=== PATIENT | male | born 1975 | race Caucasian/White ===

== ENCOUNTER 2017-12-08 20:55 | Emergency (ER) | payer BC, OTHER ==
[2017-12-08 21:03] VITALS: BP 123/88
--- NOTE | 2017-12-08 21:30 | EDM.PDOC ---
ED HPI GENERAL MEDICAL PROBLEM - General Chief Complaint: General Stated Complaint: post-op bleeding Time Seen by Provider: 12/08/17 21:00 Source of Information: Reports: Patient, RN History Limitations: Reports: No Limitations - History of Present Illness INITIAL COMMENTS - FREE TEXT/NARRATIVE: Patient is a 42-year-old gentleman who had a [facility]illect[facility] performed [facility] he was home when he started bleeding from the surgical site and came into the hospital at the time that I examined him patient was in no longer bleeding and his speech was clear Onset: Sudden Duration: Hour(s):, Improving Location: Reports: Face Quality: Reports: Other (No pain) Severity: Mild Improves with: Reports: Cold Therapy Worsens with: Reports: Eating Context: Reports: Other (Status post surgery) Associated Symptoms: Reports: No Other Symptoms Treatments 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 Gastrointestinal History: Reports: Other (See Below) Other Gastrointestinal History: Gastric bypass, 2004 Musculoskeletal History: Reports: Fracture Other Musculoskeletal History: R foot repair from crush injury in 2004 - Infectious Disease History Infectious Disease History: Reports: Chicken Pox - Past Surgical History GI Surgical History: Reports: Bariatric Procedure Social & Family History - Tobacco Use Smoking Status *Q: Former Smoker Years of Tobacco use: 20 Used Tobacco, but Quit: Yes Month/Year Tobacco Last Used: 02/2016 Second Hand Smoke Exposure: No - Alcohol Use Days Per Week of Alcohol Use: 7 Number of Drinks Per Day: 2 Total Drinks Per Week: 14 - Recreational Drug Use Recreational Drug Use: No ED ROS GENERAL - Review of Systems Review Of Systems: See Below Constitutional: Reports: No Symptoms HEENT: Reports: Throat Swelling, Other (Tonsillar bleed control at this time) Respiratory: Reports: No Symptoms Cardiovascular: Reports: No Symptoms Endocrine: Reports: No Symptoms GI/Abdominal: Reports: No Symptoms : Reports: No Symptoms Musculoskeletal: Reports: No Symptoms Skin: Reports: No Symptoms Neurological: Reports: No Symptoms Psychiatric: Reports: No Symptoms Hematologic/Lymphatic: Reports: No Symptoms Immunologic: Reports: No Symptoms ED EXAM, GENERAL - Physical Exam Exam: See Below Exam Limited By: Language Barrier (Difficult time speaking secondary to tonsillectomy) General Appearance: Alert, WD/WN, Mild Distress Ears: Normal External Exam, Normal Canal, Hearing Grossly Normal, Normal TMs Nose: Normal Inspection, Normal Mucosa, No Blood Throat/Mouth: Inflammation, Other (Tonsillar crypts appeared hyfrecated but no active bleeding seen at this time) Head: Atraumatic, Normocephalic Neck: Normal Inspection, Supple, Non-Tender, Full Range of Motion Respiratory/Chest: No Respiratory Distress, Lungs Clear, Normal Breath Sounds, No Accessory Muscle Use, Chest Non-Tender Cardiovascular: Normal Peripheral Pulses, Regular Rate, Rhythm, No Edema, No Gallop, No JVD, No Murmur, No Rub GI/Abdominal: Normal Bowel Sounds, Soft, Non-Tender, No Organomegaly, No Distention, No Abnormal Bruit, No Mass (Male) Exam: Deferred Rectal (Males) Exam: Deferred Back Exam: Normal Inspection, Full Range of Motion, NT Extremities: Normal Inspection, Normal Range of Motion, Non-Tender, Normal Capillary Refill, No Pedal Edema Neurological: Alert, Oriented, CN II-XII Intact, Normal Cognition, Normal Gait, Normal Reflexes, No Motor/Sensory Deficits Psychiatric: Normal Affect, Normal Mood Course - Vital Signs Last Recorded V/S: Last Vital Signs Temp 96.2 F 12/08/17 20:56 Pulse 111 H 12/08/17 20:56 Resp 16 12/08/17 20:56 BP 123/88 12/08/17 20:56 Pulse Ox 99 12/08/17 20:56 Departure - Departure Time of Disposition: 21:31 Disposition: Home, Self-Care 01 Condition: Good Clinical Impression: Post tonsillectomy secondary hemorrhage - Discharge Information Referrals: Derek Mcnally PA [Primary Care Provider] - Care Plan Goals: I current time patient is not bleeding will be sent home with a ice pack told to drink cold fluids and return to the ER if rebleeding thank you very much this is Dr. Lucia dictating
== END 2017-12-08 21:40 | disposition home or self-care (01) ==
LOC: LL.ED 20:55
DX: J95.830 Postprocedural hemorrhage of a respiratory system organ or structure following a respiratory system procedure (principal); Z87.891 Personal history of nicotine dependence; I25.2 Old myocardial infarction
CPT/HCPCS: 99282

== ENCOUNTER 2020-03-18 13:45 | Emergency (ER) | payer BC, OTHER ==
[2020-03-18 13:56] VITALS: BP 138/87; PULSE 77
--- NOTE | 2020-03-18 13:59 | EDM.PDOC ---
ED HPI GENERAL MEDICAL PROBLEM - General Chief Complaint: Bite:Animal, Insect Stated Complaint: dog bite wound Time Seen by Provider: 03/18/20 13:55 Source of Information: Reports: Patient, Family (), Old Records ([facility] chart/EMR) History Limitations: Reports: No Limitations - History of Present Illness INITIAL COMMENTS - FREE TEXT/NARRATIVE: Patient was brought to the emergency room via private automobile by his for evaluation of a dog bite injury, which occurred on about 03/05/20. Note that the patient was bitten by a friend's dog, whose rabies and other immunizations are apparently up-to-date by their history. The dog does normally exhibit aggressive behavior and did bite his earlier in the year and also a neighborhood child. The dog bite site has refused to heal with patient placed on doxycycline secondary to an ingrown toenail on 03/08 with completion of this therapy yesterday evening. The patient also denies any recent fever, cough, wheezing, dyspnea, etc.. No recent history of abdominal pain, heartburn, nausea, diarrhea, melena, gross hematochezia, or any food intolerance, including fatty foods, etc.. The patient denies any chest pain/pressure, heart flutter, dizziness, orthostasis, orthopnea, diaphoresis, paresthesias, recent decreased exercise tolerance, or any other anginal-type symptoms. No current pain or discomfort. Onset: Unknown/Unsure Onset Date: 03/05/20 Duration: Week(s):, Getting Worse Location: Reports: Lower Extremity, Right Quality: Reports: Same as Previous Episode Severity: Mild Improves with: Reports: None Worsens with: Reports: None Context: Reports: Trauma (As above) Associated Symptoms: Denies: Confusion, Chest Pain, Cough, Diaphoresis, Feve r/Chills, Malaise, Nausea/Vomiting, Shortness of Breath, Weakness Treatments UROLOGIST: Reports: Other (see below) (None) - Related Data Allergies Allergy/AdvReac Type Severity Reaction Status Date / Time No Known Drug Allergies Allergy Other Verified 03/18/20 13:49 Home Meds: Home Meds traZODone HCl [Trazodone HCl] 150 mg PO BEDTIME 12/08/17 [History] Cyclobenzaprine [Flexeril] 10 mg PO TID PRN 03/10/19 [History] Amoxicillin/Potassium Clav [Augmentin 875-125 Tablet] 1 each PO BIDMEALS #20 tablet 03/18/20 [Rx] Calcium Citrate 200 mg PO BID 03/18/20 [History] Cholecalciferol (Vitamin D3) [Vitamin D3] 2,000 unit PO DAILY 03/18/20 [History] Cyanocobalamin (Vitamin B12) [Vitamin B12] 500 mcg PO DAILY 03/18/20 [History] Docusate Sodium [Colace] 100 mg PO BID 03/18/20 [History] Ergocalciferol (Vitamin D2) [Vitamin D2] 50,000 unit PO WE 03/18/20 [History] Lidocaine [Lidoderm] 1 - 2 patch TOP ASDIRECTED PRN 03/18/20 [History] Menthol [Therapeutic Mineral Ice] 1 dose TOP DAILY PRN 03/18/20 [History] Multivitamin [One-Daily Multi-Vitamin] 1 tab PO DAILY 03/18/20 [History] Omeprazole 20 mg PO DAILY 03/18/20 [History] Rosuvastatin Calcium 10 mg PO BEDTIME 03/18/20 [History] Sertraline [Zoloft] 50 mg PO DAILY 03/18/20 [History] Sildenafil [Viagra] 1 tab PO ASDIRECTED 03/18/20 [History] Simethicone 40 mg PO TID 03/18/20 [History] Past Medical History HEENT History: Reports: Impaired Vision, Other (See Below). Denies: Allergic Rhinitis, Hard of Hearing Other HEENT History: History of left-sided strabismus with secondary chronic vision loss with no surgery required. He wears glasses. Cardiovascular History: Reports: High Cholesterol, Other (See Below). Denies: Aneurysm, Blood Clots/VTE/DVT, CAD, Heart Failure, Heart Murmur, Hypertension, HI, Syncope Other Cardiovascular History: Pt states he had a blunt chest trauma in 1996. Possible previous silent HI resting EKG, however inconclusive with that evaluation and negative Cardiolite stress test as below. Respiratory History: Reports: Sleep Apnea, Other (See Below) Other Respiratory History: Moderate obstructive sleep apnea with the patient noncompliant with his CPAP at this time secondary to his chronic low back pain. Gastrointestinal History: Reports: Chronic Constipation, Fatty Liver, Gastritis, GERD, Hiatal Hernia. Denies: Celiac Disease, Cholelithiasis, Chronic Diarrhea, GI Bleed, Hepatitis, Inflammatory Bowel Disease, Irritable Bowel Syndrome, Jaundice, Pancreatitis, PUD Other Gastrointestinal History: Gastric bypass as below with persistent GERD. Possible gastritis secondary to previous NSAIDs. Genitourinary History: Reports: Renal Calculus, STD, Other (See Below). Denies: Acute Renal Failure, BPH, Chronic Renal Insuffiency, Retention, Urinary, Urinary Incontinence, UTI, Recurrent Other Genitourinary History: Chlamydia in 2019 subsequent treatment. History of bilateral nephrolithiasis with right-sided urolithiasis on 12/13/09 with required lithotripsy by patient history. Erectile dysfunction. Benign bilateral renal cysts. Musculoskeletal History: Reports: Arthritis, Back Pain, Chronic, Fracture, Osteoarthritis. Denies: Amputation, Gout, RA, SLE Other Musculoskeletal History: Possible left rotator cuff tear on 11/27/15. R foot crush injury in 2004 with secondary compartment syndrome and surgeries required as below. Chronic low back pain degenerative bulging discs L4--L5 with bilateral sciatica for which he has had probable epidural injections. Phalangeal fracture of digit #5 of the right hand in about 1991. Neurological History: Reports: Neuropathy, Peripheral, Other (See Below). Denies: Cerebral Aneurysms, CVA, Headaches, Chronic, Migraines, MS, Parkinson's, Seizure, TIA Other Neuro History: Neuropathy and bilateral sciatica secondary to his arthritis. Benign pineal cysts by CT scan in 2009. Psychiatric History: Reports: Addiction, Anxiety, Depression, PTSD, Suicidal Ideation, Other (See Below). Denies: Abuse, Victim of, ADD, ADHD, Psych Hospitalization(s), Suicide Attempt Other Psychiatric History: PTSD with suicidal ideation secondary to service. Abuse of alcohol since October 2019 secondary to his father's and chronic low back pain with no treatment to this point. Endocrine/Metabolic History: Reports: Diabetes, Type II, Obesity/BMI 30+, Other (See Below). Denies: Diabetes Mellitus, Type 3c, IDDM Other Endocrine/Metabolic History: Borderline AODM with no medications to this point. - Infectious Disease History Infectious Disease History: Reports: Chicken Pox, Mononucleosis (At age 8). Denies: C-Difficile, Measles, Meningitis, MRSA, Mumps, Pertussis (Whooping Cough), Rubella, Scarlet Fever, Shingles, TB, VRE - Past Surgical History HEENT Surgical History: Reports: Adenoidectomy, Oral Surgery, Tonsillectomy, Other (See Below). Denies: Cataract Surgery, Eye Surgery, Myringotomy w Tube(s), Naso-Sinus Surgery Other HEENT Surgeries/Procedures: Tonsillectomy and adenoidectomy in November 2017. [place] teeth extraction 4 at about age 21. GI Surgical History: Reports: Bariatric Procedure, Other (See Below). Denies: Appendectomy, Cholecystectomy, Colonoscopy, EGD, Hernia, Abdominal, Hernia, Inguinal, Hernia Repair/Other, Polypectomy Other GI Surgeries/Procedures: Hay-en-Y Gastric bypass surgery on 08/01/09. Male Surgical History: Reports: Circumcision, Lithotripsy ([facility]), Renal Calculus, Other (See Below). Denies: TURP-Transurethral Resection of Prostate, Vasectomy Other Male Surgeries/Procedures: Circumcision as an infant. Lithotripsy with stone removal in 2008. Neurological Surgical History: Reports: None. Denies: C-Spine, Discectomy, Laminectomy, Lumbar Spine, Sacral Spine, Spinal Fusion, Thoracic Spine, Vertebroplasty Musculoskeletal Surgical History: Reports: Other (See Below) Other Musculoskeletal Surgeries/Procedures:: Right foot fasciotomy due to crush injury/compartment syndrome on 01/08/05 with subsequent wound debridement on 01/11/05. - Past Imaging History Past Imaging History: Reports: CAT Scan (CT of the head on 04/10/10. CT of the abdomen and pelvis using stone protocol on 12/13/09, 11/02/09, and 09/20/09. CT of the abdomen and pelvis with oral contrast on 11/10/08.), Sleep Study (Positive sleep study on 10/16/07.), Stress Testing (Negative Cardiolite stress test on 12/25/07 with ejection fraction of 63%.), Ultrasound (Right upper quadrant ab dominal ultrasound on 11/10/08. Complete abdominal ultrasound on 12/04/05.) Social & Family History - Tobacco Use Smoking Status *Q: Former Smoker Tobacco Use Within Last Twelve Months: No Years of Tobacco use: 13 Packs/Tins Daily: 1 Packs/Tins Daily Comment: Smoked between ages 16 and 29 with no use since August 2004. Used Tobacco, but Quit: Yes Smoking Cessation Information Provided To Patient: No Second Hand Smoke Education Provided: No - Alcohol Use Alcohol Use History: Yes Days Per Week of Alcohol Use: 7 Number of Drinks Per Day: 8 Number of Drinks Per Day Comment: Problems with alcohol abuse since October 2019 as above with no treatment or counseling to this point. No previous DWIs, problems with alcohol abuse, etc. Total Drinks Per Week: 56 Alcohol Use in Last Twelve Months: Yes Alcohol Use Frequency: Binges - Recreational Drug Use Recreational Drug Use: Yes Drug Use in Last 12 Months: Yes Recreational Drug Type: Reports: Marijuana/Hashish (Started using marijuana at age 18 with average use of 3 joints per month). Denies: Amphetamines (Speed), Cocaine, Heroin, Inhalants (Glues, Solvents, Aerosols), Ketamines, LSD (Acid), Morphine, Oxycodone - Living Situation & Occupation Living situation: Reports: (2004, 2 children), with Family Occupation: Disabled (Secondary to PTSD) ED ROS GENERAL - Review of Systems Review Of Systems: Comprehensive ROS is negative, except as noted in HPI. ED EXAM, ANIMAL BITE - Physical Exam Exam: See Below Exam Limited By: No Limitations General Appearance: Alert, WD/WN, No Apparent Distress, Anxious (Mild to moderate with no evidence of intoxication) Head: Atraumatic, Normocephalic Neck: Normal Inspection, Supple, Non-Tender, Full Range of Motion. No: Lymphadenopathy (L), Lymphadenopathy (R), Thyromegaly Respiratory/Chest: No Respiratory Distress, Lungs Clear, Normal Breath Sounds, No Accessory Muscle Use, Chest Non-Tender. No: Pleural Rub, Retractions Cardiovascular: Normal Peripheral Pulses, Regular Rate, Rhythm, No Edema, No Gallop, No JVD, No Murmur, No Rub. No: Gallop/S3, Gallop/S4, Friction Rub Peripheral Pulses: 2+: Radial (L), Radial (R), Dorsalis Pedis (L), Dorsalis Pedis (R) GI/Abdominal: Normal Bowel Sounds, Soft, Non-Tender, No Organomegaly, No Distention, No Abnormal Bruit, No Mass, Other (Obese). No: Guarding (Male) Exam: Deferred Rectal (Males) Exam: Deferred Back Exam: Normal Inspection, Full Range of Motion. No: CVA Tenderness (L), CVA Tenderness (R), Muscle Spasm Extremities: Normal Range of Motion, No Pedal Edema, Normal Capillary Refill. No: Leg Pain (Minimal discomfort at the bite site over the right lateral ankle with 4 cm area of old ecchymosis and a 1 cm centralized area of grade 2 ulceration with mild drainage but no foreign body, lymphangitis, significant erythema, etc.), Increased Warmth, Redness Neurological: Alert, Oriented, CN II-XII Intact, Normal Cognition, Normal Gait, No Motor/Sensory Deficits Psychiatric: Anxious (Moderate), Depressed Mood (Mild to moderate. Good eye contact) Skin Exam: Ecchymosis (As above), Other (Dog bite as above). No: Diaphoresis Lymphadenopathy: Bilateral: No Adenopathy Lymphatic: No Adenopathy Course - Vital Signs Last Recorded V/S: Last Vital Signs Temp 37.1 C 03/18/20 13:52 Pulse 77 03/18/20 13:52 Resp 16 03/18/20 13:52 BP 138/87 03/18/20 13:52 Pulse Ox 98 03/18/20 13:52 Vital Signs - 24 hr 03/18/20 13:52 Temperature [ 37.1 C Temporal] Pulse, 77 Peripheral [ Right Pulse Oximetry] Respiratory 16 Rate Blood Pressure 138/87 [Right Upper Arm] O2 Sat by Pulse 98 Oximetry - Orders/Labs/Meds Orders: Active Orders 24 hr Category Date Time Status CULTURE WOUND + SMEAR [RM] Stat Lab 03/18/20 14:14 Received Labs: Gram stain, culture, and sensitivity pending from dog bite site Meds: None - Radiology Interpretation Free Text/Narrative:: None Departure - Departure Time of Disposition: 15:02 Disposition: Home, Self-Care 01 Condition: Good Clinical Impression: Dog bite, Cellulitis, Hyperlipidemia, Osteoarthritis, Mixed anxiety depressive disorder, Illicit drug use, continuous - Discharge Information *PRESCRIPTION DRUG MONITORING PROGRAM REVIEWED*: Not Applicable *COPY OF PRESCRIPTION DRUG MONITORING REPORT IN PATIENT TUNDE: Not Applicable Prescriptions: Amoxicillin/Potassium Clav [Augmentin 875-125 Tablet] 1 each PO BIDMEALS #20 tablet Instructions: Animal Bite, Adult, [id number], Cellulitis, Adult, [id number] Referrals: Davide Cruz MD [Primary Care Provider] - Forms: ED Department Discharge Additional Instructions: 1. Follow up with your regular provider in 10-14 days as needed, if symptoms persist. Bring these discharge instructions with you to that visit. 2. Tylenol 650 mg by mouth every 4 hours and/or OTC ibuprofen 2-3 tabs by mouth every 6 hours with food as directed./needed. You may stagger these medications for 48-72 hours only, which essentially means that you are receiving a pain medication about every 2 hours. 3. Antibacterial soap wash/soak with subsequent antibacterial dressing such as Neosporin, etc. as directed 2 times per day until the wound site completely heals. Keep the area clean and dry with activity restrictions as discussed. Never use hydrogen peroxide for wound care. 4. Diarrhea precautions with Augmentin as discussed 5. Immediately after this visit verify that your cellular telephone's voicemail has been activated and is empty. Also verify that your home telephone's answering machine is operating properly and has space to receive messages. Note that it is sometimes necessary for us to be able to contact you at a later date to discuss your medical care. 6. Please remember that we are ALWAYS here for you and want to answer any questions you may have. Feel free to call the hospital any time and we call you back REED. 7. Kindly suggest to your friends that their dog should be sacrificed secondary to aggressive behavior as discussed. 8. Discontinue illicit drug use and decrease alcohol use as discussed with current stressors to be openly discussed with your regular provider at this time Sepsis Event Note (ED) - Evaluation Sepsis Screening Result: No Definite Risk - Focused Exam Vital Signs: Vital Signs Temp Pulse Resp BP Pulse Ox 03/18/20 13:52 37.1 C 77 16 138/87 98 - Problem List & Annotations (1) Cellulitis SNOMED Code(s): 164518652 Code(s): L03.90 - CELLULITIS, UNSPECIFIED Status: Acute Priority: High Current Visit: Yes Onset Date: ~03/18/20 Annotation/Comment:: Persistent grade 2 ulcer with borderline cellulitis secondary to dog bite injury as above. Note recently completed doxycycline therapy. Specimen collected for Gram stain, culture, and sensitivity with results pending. Initiate Augmentin therapy with d iarrhea precautions given. Wound care discussed. Last TdAP on 11/30/16, which was confirmed through the [facility]. Qualifiers: Site of cellulitis: extremity Site of cellulitis of extremity: lower extremity Laterality: right Qualified Code(s): L03.115 - Cellulitis of right lower limb (2) Dog bite SNOMED Code(s): 708050909, 950315761 Code(s): W54.0XXA - BITTEN BY DOG, INITIAL ENCOUNTER Status: Acute Priority: High Current Visit: Yes Onset Date: ~03/05/20 Annotation/Comment:: Secondary to aggressive behavior the animal should be sacrificed. The patient and his do agree to discuss this further with their friend. Qualifiers: Encounter type: initial encounter Qualified Code(s): W54.0XXA - Bitten by dog, initial encounter (3) Hyperlipidemia SNOMED Code(s): 43540596 Code(s): E78.5 - HYPERLIPIDEMIA, UNSPECIFIED Status: Chronic Priority: Medium Current Visit: Yes Annotation/Comment:: Currently under therapy. Weight loss in moderation still advisable. Note status post gastric bypass surgery with history of fatty liver. Qualifiers: Hyperlipidemia type: unspecified Qualified Code(s): E78.5 - Hyperlipidemia, unspecified (4) Mixed anxiety depressive disorder SNOMED Code(s): 834272829 Code(s): F41.8 - OTHER SPECIFIED ANXIETY DISORDERS Status: Chronic Priority: High Current Visit: Yes Annotation/Comment:: Continue current medical therapy, however moderate control based on patient's recent alcohol abuse since October 2019 as above. He does agree to discuss this further with his regular providers. Emotional support was provided with spiritual issues, etc. discussed. Note long history of marijuana usage as above. (5) Osteoarthritis SNOMED Code(s): 258694224 Code(s): M19.90 - UNSPECIFIED OSTEOARTHRITIS, UNSPECIFIED SITE Status: Chronic Priority: Medium Current Visit: Yes Annotation/Comment:: Chronic low back pain, which has been refractory to therapy, with back surgery apparently scheduled for 04/25/20. Qualifiers: Osteoarthritis location: multiple joints Osteoarthritis type: primary Qualified Code(s): M89.49 - Other hypertrophic osteoarthropathy, multiple sites (6) Illicit drug use, continuous SNOMED Code(s): 612353088 Code(s): F19.90 - OTHER PSYCHOACTIVE SUBSTANCE USE, UNSPECIFIED, UNCOMPLICATED Status: Chronic Priority: High Current Visit: Yes Annotation/Comment:: The patient and his were extensively counseled concerning the effects of marijuana on his emotional status, etc. Discontinuation of marijuana REED was strongly encouraged. - Problem List Review Problem List Initiated/Reviewed/Updated: Yes - My Orders Last 24 Hours: My Active Orders 03/18/20 14:14 CULTURE WOUND + SMEAR [RM] Stat - Assessment/Plan Last 24 Hours: My Active Orders 03/18/20 14:14 CULTURE WOUND + SMEAR [RM] Stat Assessment:: As above Plan: As above. Extensive precautions were given to the patient and his , who are in agreement with the treatment plan. See Patient Instructions for further treatment and plan.
== END 2020-03-18 15:02 | disposition home or self-care (01) ==
LOC: LL.ED 13:45
DX: S91.051A Open bite, right ankle, initial encounter (principal); L03.115 Cellulitis of right lower limb; E78.5 Hyperlipidemia, unspecified; M19.90 Unspecified osteoarthritis, unspecified site; F41.8 Other specified anxiety disorders; F19.90 Other psychoactive substance use, unspecified, uncomplicated; K21.9 Gastro-esophageal reflux disease without esophagitis; E78.00 Pure hypercholesterolemia, unspecified; E66.9 Obesity, unspecified; Z68.35 Body mass index [BMI] 35.0-35.9, adult; E11.42 Type 2 diabetes mellitus with diabetic polyneuropathy; Z79.899 Other long term (current) drug therapy; W54.0XXA Bitten by dog, initial encounter
CPT/HCPCS: 87070; 87205; 99283

== ENCOUNTER 2025-06-26 10:04 | Emergency (ER) | payer OTHER ==
[2025-06-26 10:22] LABS: BASOPHILS ABSOLUTE AUTO 0.04 K/uL (0.00-0.20); BASOPHILS PERCENT AUTO 0.5 % (0.0-2.0); EOSINOPHILS ABSOLUTE AUTO 0.11 K/uL (0.00-0.50); EOSINOPHILS PERCENT AUTO 1.4 % (0.0-5.0); IMMATURE GRAN ABSOLUTE AUTO 0.00 10^3/uL (0.00-0.04); IMMATURE GRAN PERCENT AUTO 0.0 % (0.0-0.4); LYMPHOCYTES ABSOLUTE AUTO 1.89 K/uL (0.50-3.50); LYMPHOCYTES PERCENT AUTO 24.3 % (10.0-50.0); MONOCYTES ABSOLUTE AUTO 0.67 K/uL (0.00-1.00); MONOCYTES PERCENT AUTO 8.6 % (2.0-14.0); NEUTROPHILS ABSOLUTE AUTO 5.06 K/uL (1.40-7.00); NEUTROPHILS PERCENT AUTO 65.2 % (45.0-80.0); PLATELET COUNT,PLT 240 K/uL (150-350); RED BLOOD CELL COUNT 4.63 M/uL (4.33-5.41); RED CELL DISTRIBUTION WIDTH 12.7 % (11.2-14.1); WHITE BLOOD CELL COUNT,WBC 7.8 K/uL (4.0-10.2)
[2025-06-26 10:55] LABS: ALANINE AMINOTRANSFERASE,ALT 37 U/L (12-78); ASPARTATE AMNIOTRANSFERASE,AST 20 U/L (15-37); BILIRUBIN TOTAL 0.5 mg/dL (0.2-1.0); BLOOD UREA NITROGEN,BUN 9 mg/dL (7-18); CARBON DIOXIDE,CO2 26.8 mmol/L (21.0-32.0); CHLORIDE,CL 106 mmol/L (98-107); CREATININE 1.27 mg/dL (0.51-1.17); ESTIMATED GFR 70 mL/min (>=60); GLUCOSE RANDOM 172 mg/dL (70-99); POTASSIUM,K 4.0 mmol/L (3.5-5.1); PROTEIN TOTAL,TP 7.5 g/dL (6.4-8.2); SODIUM,NA 143 mmol/L (136-145)
[2025-06-26] MEDS: Take Home: Ketorolac 10 MG Tab, 4 Tab Pack PO ONE (12:09)
[2025-06-26 12:30] VITALS: BP 129/89; PULSE 79
== END 2025-06-26 12:15 | disposition home or self-care (01) ==
LOC: LL.ED 10:04
DX: S86.912A Strain of unspecified muscle(s) and tendon(s) at lower leg level, left leg, initial encounter (principal); Z88.8 Allergy status to other drugs, medicaments and biological substances; Z79.899 Other long term (current) drug therapy; X58.XXXA Exposure to other specified factors, initial encounter
CPT/HCPCS: 36415; 80053; 85025; 85379; 99283; A9270-GY